=== PATIENT | female | born 1970 | race Caucasian/White ===

== ENCOUNTER 2025-01-02 06:58 | Day surgery (SDC) | payer BC ==
[2025-01-02] MEDS ORDERED: Propofol 200 MG/20 ML SDV IV ONE (06:59)
[2025-01-02] MEDS ORDERED: Lactated Ringers 1,000 ML IV ONE (06:59)
[2025-01-02] MEDS: Lactated Ringers 1,000 ML IV SCH (07:30)
[2025-01-02 09:48] VITALS: BP 123/79; PULSE 63
== END 2025-01-02 10:02 | disposition home or self-care (01) ==
LOC: DL.ENDO 06:58
PROVIDERS: ATTEND Internal Medicine Gastroenterology
DX: Z12.11 Encounter for screening for malignant neoplasm of colon (principal); E03.9 Hypothyroidism, unspecified; I10 Essential (primary) hypertension; F41.1 Generalized anxiety disorder; F32.A Depression, unspecified; Z88.2 Allergy status to sulfonamides; Z79.890 Hormone replacement therapy
CPT/HCPCS: J2704; J7120